=== PATIENT | female | born 2000 | race Caucasian/White ===

== ENCOUNTER 2020-03-24 10:30 | Inpatient (IN) | payer BC, SELFPAY ==
[2020-03-24] VITALS (15 sets, daily range): BP systolic 102–133; BP diastolic 62–91; PULSE 58–110; RESP 11–22; TEMP 36.9–38.1; O2SAT 98–100; BMI 19.5
--- NOTE | ~2020-03-24 | XR_ITS ---
EXAMINATION: XR retrograde pyelo w/stent RT EXAM DATE: 03/24/2020 16:08 INDICATION: Right-sided stent placement. TECHNIQUE: Fluoroscopy used during XR retrograde pyelo w/stent RT performed by Dr. Julieth Salcido MD. The DAP for this procedure was 0.4 mGym2. FINDINGS: Large calcific density projecting over the right ureteropelvic junction. The right ureter was cannulated, injected. Mild to moderate right-sided hydronephrosis. A double-J ureteral stent was placed. Correlate with procedure note. IMPRESSION: Fluoroscopy used during XR retrograde pyelo w/stent RT. Reviewed, dictated and finalized at location B.
--- NOTE | ~2020-03-24 | XR_ITS ---
XR abdomen/kub 1V DATE: 03/24/2020 14:48 INDICATION: Right flank pain TECHNIQUE: AP projection, 2 views COMPARISON: 03/24/[address] abdomen pelvis examination FINDINGS: Approximately 8 x 12 mm calcified calculus at the right ureteropelvic junction. No evidence of bowel obstruction. The psoas shadows are intact. No visceromegaly is evident. IMPRESSION: 8 x 12 mm calcified right ureteropelvic junction calculus Reviewed, dictated and finalized at Location [facility]. Reviewed, dictated and finalized at location A.
--- NOTE | ~2020-03-24 | CT_ITS ---
EXAMINATION: CT abdomen pelvis wo con DATE: 03/24/2020 12:49 INDICATION: Kidney stone TECHNIQUE: Computed tomography (CT) of the abdomen and pelvis was performed without intravenous contr ast. Automated exposure control and iterative reconstruction technique were employed. Exam dose: 169 .88 mGy-cm total exam DLP. COMPARISON: None. FINDINGS: The lung bases are clear. Normal heart size. No pericardial or pleural effusion. Normal heart size. No pericardial or pleural effusion. The liver, spleen, pancreas, adrenal glands are unremarkable. No bile duct or pancreatic duct dilata tion. 8 x 11.5 mm right renal pelvic calculus, with prominent right hydronephrosis. No other urinary tract calculus or left hydronephrosis. No renal mass lesion is evident on this limited noncontrast examination. Normal caliber of the abdominal aorta. No intraperitoneal or retroperitoneal or pelvic mass lesion o r lymphadenopathy. The uterus and adnexa and urinary bladder are unremarkable. Included skeletal structures are unremarkable. IMPRESSION: 8 x 11.5 mm right renal pelvic calculus with prominent right hydronephrosis Reviewed, dictated and finalized at Location [facility]. Reviewed, dictated and finalized at location A. IMPRESSION: 8 x 11.5 mm right renal pelvic calculus with prominent right hydro nephrosis
[2020-03-24 11:51] LABS: Basophils Percent Auto 0.3 % (0.2-1.2); Eosinophils Percent Auto 0.1 % (0-4.4); Hematocrit 44.9 % (37.0-47.0); Hemoglobin 15.3 g/dL (12.0-15.0); Immature Granulocyte Absolute 0.05 K/mm3 (0.00-0.031); Immature Granulocyte Percent A 0.3 % (0-0.5); Lymphocytes Absolute Auto 0.85 K/mm3 (0.9-3.2); Lymphocytes Percent Auto 5.9 % (18.3-44.2); Mean Corpuscular HGB Conc 34.1 g/dl (32-36); Mean Corpuscular Hemoglobin 31.6 pg (26-34); Mean Corpuscular Volume 92.8 fl (80-100); Mean Platelet Volume 10.1 fl (7.4-10.4); Monocytes Absolute Auto 0.8 K/mm3 (0.1-0.6); Monocytes Percent Auto 5.8 % (2.6-8.5); Neutrophils Absolute Auto 12.5 K/mm3 (1.3-6.7); Neutrophils Percent Auto 87.6 % (45.5-73.1); Platelet Count Result 238 k/mm3 (150-375); Red Blood Count 4.84 M/mm3 (4.2-5.4); Red Cell Distribution Width 11.3 % (11.5-14.5); White Blood Count 14.3 K/mm3 (4.5-10.0)
[2020-03-24 11:59] LABS: Add Urine Microscopic? YES; Appearance Urine Cloudy (Clear); Bacteria Urine 4+ /hpf; Bilirubin Urine Negative (Negative); Blood Urine 1+ (Negative); Color Urine Yellow (Yellow); Glucose Urine UA Negative (Negative); Ketones Urine 1+ mg/dL (Negative); Leukocyte Esterase Ur 3+ LEU/UL (Negative); Mucus Urine Heavy /lpf; Nitrate Urine Positive (Negative); Protein Urine 3+ mg/dL (Negative); RBC Urine 51-75 /hpf (0-2); Specific Grav Ur 1.024 (1.001-1.035); Squamous Epithelial Cell Urine Few /hpf (Few); Urobilinogen Urine Negative mg/dL (<2.0); WBC Clumps Urine Present /HPF; WBC Urine >75 /hpf
[2020-03-24 12:02] LABS: Anion Gap 11 mmol/L (8-16); Blood Urea Nitrogen 8 mg/dL (7-17); Calcium 9.8 mg/dL (8.4-10.2); Carbon Dioxide 27 mmol/L (22-30); Chloride 104 mmol/L (98-107); Estimated CRCL calculation 59 ml/min; Estimated Glomerular Filt Rate > 60; Glucose 101 mg/dL (65-105); Potassium 4.2 mmol/L (3.4-5.0); Sodium 142 mmol/L (137-145)
--- NOTE | 2020-03-24 12:32 | ED.ABDPAIN ---
HPI - Abdominal Pain General Chief Complaint: Abdominal Pain Stated Complaint: poss kidney stone Time Seen by Provider: 03/24/20 12:21 Source: patient and family Mode of arrival: ambulatory Limitations: no limitations History of Present Illness HPI narrative: 20 years old white female presents with right flank pain radiating to right lower quadrant, stabbing, sharp, constant, denying aggravating or relieving factors, associated with nausea and vomiting since last night. Patient denies any fever, reports chills, and similar symptoms secondary to kidney stone. Patient denies any history of abdominal surgery. Related Data Home Medications Medication Instructions Recorded Confirmed medroxyprogesterone 150 mg/mL 150 mg IM [id number] 02/02/20 02/02/20 intramuscular suspension cariprazine [Vraylar] 0 ea PO .COMPLEX 03/24/20 Allergies Allergy/AdvReac Type Severity Reaction Status Date / Time amphetamine AdvReac Intermediate Fatigued Verified 03/24/20 11:36 dextroamphetamine AdvReac Intermediate fatigued Verified 03/24/20 11:36 Review of Systems Review of Systems: Narrative: CONSTITUTIONAL: Denies fever, chills, or sweats. EYES: Denies visual changes, redness, or discharge. ENT: Denies rhinorrhea, congestion, sore throat, or otalgia. CARDIOVASCULAR: Denies chest pain, palpitations, or edema. RESPIRATORY: Denies cough or dyspnea. GASTROINTESTINAL: Right flank pain, right lower quadrant pain. GENITOURINARY: Denies dysuria or hematuria. SKIN: Denies rash or itching. MUSCULOSKELETAL: Denies back pain, joint pain, or myalgia. NEUROLOGIC: Denies headache, numbness, or weakness. PSYCHIATRIC: Denies anxiety or depression. PMFSH Past Medical History Medical History Bipolar II disorder major depressive with catatonic features Family History Family History Other Depression Family history of malignant neoplasm of breast Family history of thyroid disease Social History Social History Gender identity (if verbalized by the patient): Female Sexual Orientation (if Verbalized by the Patient): Straight or Heterosexual Exam Narrative: Exam Narrative: General appearance: Well-developed, well-nourished, mother at the bedside Skin: Normal color Head: Normocephalic, nontraumatic Eyes: Clear conjunctiva ENT: Oropharynx normal, ears normal, nose normal Neck: Supple, nontender Chest and respiratory: Airway patent, no respiratory distress, no accessory muscle use Heart: Regular rate/rhythm Abdomen: Soft, mild tenderness right abdomen, severe tenderness right flank., no organomegaly, quiet bowel sounds Vascular: Normal peripheral pulses, normal capillary refill. Musculoskeletal: Normal range of motion, nontender back Neurologic: Alert and oriented ?3, SPECIALIST FIELD ENGINEER is normal as tested, no gross motor deficit Course Course Emergency Course: Stable Consultations Consultation #1: Dr. Salcido/urologist Date: 03/24/20 Time: 14:38 Vital Signs Vital signs: Vital Signs Temperature 36.9 C 03/24/20 11:33 Pulse Rate 94 03/24/20 11:33 Respiratory Rate 22 H 03/24/20 11:33 Blood Pressure 133/91 H 03/24/20 11:33 Pulse Oximetry 100 03/24/20 11:33 Temperature 36.9 C 03/24/20 11:33 Pulse Rate 94 03/24/20 11:33 Respiratory Rate 22 H 03/24/20 11:33 Blood Pressure 133/91 H 03/24/20 11:33 Pulse Oximetry 100 03/24/20 11:33 MDM - Abdominal Pain MDM Narrative Medical decision making narrative: Patient presents with right flank pain, associated with nausea and frequent vomiting, history of
[2020-03-24] MEDS: HYDROmorphone HCL INJ (*CRX) 1 MG/ML SYR 0.5 MG IV PUSH (13:34)
[2020-03-24] MEDS: ONDANSETRON INJ 4 MG/2 ML VIAL IV PUSH (13:34)
--- NOTE | 2020-03-24 14:38 | WPDURCON ---
Assessment and Plan Assessment and plan (1) Kidney calculus: Code(s): N20.0 - Calculus of kidney Status: Acute Assessment and Plan: Obtain Consent:Cystoscopy, right ureteroscopy with stent placement, right retrograde pyelogram. Keep NPO. Get a KUB for surgical planning. Plan to go to surgery this afternoon, then will need a right ESWL in a few weeks when infection resolves as long as stone is visible on KUB. Will plan to admit to medicine and treat UTI with IV antibiotics until culture comes back and patient is stable. (2) Pyelonephritis: Code(s): N12 - Tubulo-interstitial nephritis, not specified as acute or chronic Status: Acute Urology Consult Note HPI Date Seen: 03/24/20 Primary Care Provider: Larry Garcia Jr., MD Consult Narrative Narrative: Laura Gracia is a 20 year old female who presents to the ER today with worsening right flank pain that developed shortly after midnight this morning. She states this pain radiates to the right lower quadrant. She states she woke up in pain and vomited, then fell back asleep and woke up again to vomit, then applied heat off and on to her right flank until around 0830 this morning when the pain became so severe she came to the ED. She does'nt have a history of kidney stones but has passed them all spontaneously without surgery. She denies dysuria, hematuria, frequency or urgency to urinate or fever. She also describes having chills. Her WBC is elevated >14,000, creatinine normal at 1.00, but UA is suggestive of a UTI, urine culture is pending. She is afebrile. Her CT scan abdomen/pelvis shows an 11mm right renal pelvic stone with hydronephrosis. Review of Systems Cardiovascular: Cardiovascular: Denies chest pain Respiratory: Respiratory: Reports no additional respiratory complaints Gastrointestinal: Gastrointestinal: Reports abdominal pain, Reports nausea and Reports vomiting Genitourinary: Genitourinary: Denies dysuria, Denies pelvic pain, Reports flank pain and Denies urinary urgency PMF Past Medical History Medical History Bipolar II disorder major depressive with catatonic features Family History Family History Other Depression Family history of malignant neoplasm of breast Family history of thyroid disease Social History Social History Gender identity (if verbalized by the patient): Female Sexual Orientation (if Verbalized by the Patient): Straight or Heterosexual Meds Home Medications and Allergies Home Medications Medication Instructions Recorded Confirmed Type medroxyprogesterone 150 mg/mL 150 mg IM [id number] 02/02/20 02/02/20 History intramuscular suspension cariprazine [Vraylar] 0 ea PO .COMPLEX 03/24/20 History Allergies Allergy/AdvReac Type Severity Reaction Status Date / Time amphetamine AdvReac Intermediate Fatigued Verified 03/24/20 11:36 dextroamphetamine AdvReac Intermediate fatigued Verified 03/24/20 11:36 Vital Signs Vital Signs - 24 hr 03/24/20 11:33 03/24/20 13:40 Temperature 98.4 F Pulse Rate 94 82 Respiratory Rate 22 H 18 Blood Pressure 133/91 H 116/74 Pulse Oximetry 100 99 Exam Resp: Effort & Inspection: normal respiratory effort Cardio: Rate: regular rate GI: GI Palp: Yes Soft to palpation and Yes Tenderness to palpation present (GI) : General: Yes CVA tenderness on the right Extrem: General: no edema Results Labs CBC & Chem 7: 03/24/20 11:41 03/24/20 11:41 Labs: Short CBC 03/24/20 Range/Units 11:41 WBC 14.3 H (4.5-10.0) K/mm3 Hgb 15.3 H (12.0-15.0) g/dL Hct 44.9 (37.0-47.0) % Plt Count 238 (150-375) k/mm3 BMP 03/24/20 11:41 Sodium 142 Potassium 4.2 Chloride 104 Carbon Dioxide 27 BUN 8 Creatinine 1.00 Glucose 1
--- NOTE | 2020-03-24 14:49 | WPDANESEPPF ---
Anes - Initial Pre Proc Eval Procedure: Operation Date: 03/24/20 16:00 Proposed Procedures p Cystoscopy, Right Retrograde Pyelogram, Right Ureteral Stent Placement(Right) - Julieth Salcido MD Date/Time: 03/24/20 14:49 Surgeon: Julieth Salcido MD Pre Op Diagnosis: poss kidney stone Patient Data Age: 20 Gender: F Height: 1.6 m Weight: 47.63 kg Last Vital Signs Temp 36.9 C 03/24/20 11:33 Pulse 82 03/24/20 13:40 Resp 18 03/24/20 13:40 BP 116/74 03/24/20 13:40 Pulse Ox 99 03/24/20 13:40 Allergies Allergy/AdvReac Type Severity Reaction Status Date / Time amphetamine AdvReac Intermediate Fatigued Verified 03/24/20 11:36 dextroamphetamine AdvReac Intermediate fatigued Verified 03/24/20 11:36 Home Medications Medication Instructions Recorded Confirmed Type medroxyprogesterone 150 mg/mL 150 mg IM [id number] 02/02/20 02/02/20 History intramuscular suspension cariprazine [Vraylar] 0 ea PO .COMPLEX 03/24/20 History Laboratory Tests 03/24/20 03/24/20 03/24/20 11:41 11:41 11:42 WBC 14.3 K/mm3 H K/mm3 (4.5-10.0) RBC 4.84 M/mm3 M/mm3 (4.2-5.4) Hgb 15.3 g/dL H g/dL (12.0-15.0) Hct 44.9 % % (37.0-47.0) MCV 92.8 fl fl (80-100) MCH 31.6 pg pg (26-34) MCHC 34.1 g/dl g/dl (32-36) RDW 11.3 % L % (11.5-14.5) Plt Count 238 k/mm3 k/mm3 (150-375) MPV 10.1 fl fl (7.4-10.4) Immature Gran % (Auto) 0.3 % % (0-0.5) Neut % (Auto) 87.6 % H % (45.5-73.1) Lymph % (Auto) 5.9 % L % (18.3-44.2) [place] % (Auto) 5.8 % % (2.6-8.5) Eos % (Auto) 0.1 % % (0-4.4) Baso % (Auto) 0.3 % % (0.2-1.2) Lymph # (Auto) 0.85 K/mm3 L K/mm3 (0.9-3.2) [place] # (Auto) 0.8 K/mm3 H K/mm3 (0.1-0.6) Eos # (Auto) 0.0 K/mm3 K/mm3 (0-0.3) Baso # (Auto) 0.0 K/mm3 K/mm3 (0.0-0.1) Abs Immat Gran (auto) 0.05 K/mm3 H K/mm3 (0.00-0.031) Absolute Neuts (auto) 12.5 K/mm3 H K/mm3 (1.3-6.7) Absolute Nucleated RBC 0.0 K/mm3 K/mm3 (0.0-0.012) Nucleated RBC % 0.0 % % (0.0-0.2) Sodium 142 mmol/L mmol/L (137-145) Potassium 4.2 mmol/L mmol/L (3.4-5.0) Chloride 104 mmol/L mmol/L (98-107) Carbon Dioxide 27 mmol/L mmol/L (22-30) Anion Gap 11 mmol/L mmol/L (8-16) BUN 8 mg/dL mg/dL (7-17) Creatinine 1.00 mg/dL mg/dL (0.7-1.0) Estim Creat Clear Calc 59 ml/min ml/min Estimated GFR > 60 (59 - ) Glucose 101 mg/dL mg/dL (65-105) Calcium 9.8 mg/dL mg/dL (8.4-10.2) Urine Color Yellow (Yellow) Urine Appearance Cloudy H (Clear) Urine pH 6.0 (5.0-9.0) Ur Specific [place] 1.024 (1.001-1.035) Urine Protein 3+ mg/dL H mg/dL (Negative) Urine Glucose (UA) Negative mg/dL mg/dL (Negative) Urine Ketones 1+ mg/dL H mg/dL (Negative) Ur Blood (Man) 1+ H (Negative) Urine Nitrate Positive H (Negative) Urine Bilirubin Negative (Negative) Urine Urobilinogen Negative mg/dL mg/dL (<2.0) Leukocyte Esterase Rfl 3+ ROMEL/UL H ROMEL/UL (Negative) Urine RBC 51-75 /hpf H /hpf (0-2) Urine WBC >75 /hpf H /hpf Urine WBC Clumps Present /HPF H /HPF (None) Ur Squamous Epith Cells Few /hpf /hpf (Few) Urine Bacteria 4+ /hpf H /hpf Urine Mucus Heavy /lpf H /lpf Patient hx anesthesia problems: none Family hx anesthesia problems: none PMFSH Past Medical History Medical History Bipolar II disorder major depressive with catatonic features Family History Family History
[2020-03-24] MEDS: LACTATED RINGERS 1,000 ML 30 ML IV CONT (15:00)
--- NOTE | 2020-03-24 15:40 | WPDHPUPDATE1 ---
History and Physical Update Update Date/Time: 03/24/20 15:40 History and Physical has been reviewed, including an updated exam of the patient. There are NO changes in the patient's condition. Cystoscopy, Right Retrograde Pyelogram, Right Ureteral Stent Placement(Right) Risks, benefits, and alternatives have been discussed and questions answered. Patient agrees to proceed with procedure.
[2020-03-24] MEDS: LIDOCAINE HCL 2% GEL UROJET 10 ML PKG MUCOUS MEM (16:05)
--- NOTE | 2020-03-24 16:51 | SUR.PHASEI ---
1650-DR. DAWKINS AT [facility] TO SPEAK WITH PT.
--- NOTE | 2020-03-24 16:57 | PM.PROC ---
Procedure Note - Detailed Date of procedure: 03/24/20 Pre-op diagnosis: poss kidney stone Post-op diagnosis: same Procedure performed: Cystoscopy, right ureteral stent insertion, right retrograde pyelogram Description of procedure: Informed consent was obtained. Patient to the operating room. She was given preop IV antibiotics in the ER. The patient was given a mac anesthetic. She was prepped in the normal sterile fashion. A 22 F scope was inserted through the urethra into the bladder the bladder had changes consistent with a urinary tract infection with diffuse inflammation, there were no masses noted. The patient bilateral orthotopic orifices. The [place]ae[place] of the right ureteral orifice. A retrograde pyelogram was performed that showed large stone at the proximal ureter with moderate to severe right hydronephrosis. We then advanced a wire and I was able with some manipulation to advance the wire past the level of the stone. We then placed a 4.8 variable length stent over the wire with a curl in the renal pelvis and a curl in the bladder. Bladder was emptied with a Harmon catheter. Patient was taken to the recovery room in stable condition. Anesthesia: MAC Surgeon: Julieth Salcido MD Estimated blood loss (mL): 1 Drains: No Packing: No Pathology: none sent Complications: No immediate complications Condition: stable Disposition: PACU
--- NOTE | 2020-03-24 17:40 | SUR.PHASEI ---
1715-PT READY FOR TRANSPORT, COMPUTER DIFFICULTY, UNABLE TO PROCESS TRANSFER, SPRING MAKER AND IT AWARE, WILL HAVE 30 MINUTE DELAY. PT RESTING QUIETLY ON LEFT SIDE AND WILL NOT BOTHER. 1740-COMPUTER STATUS OBTAINED, WILL TRANSPORT.
--- NOTE | 2020-03-24 17:50 | PC.NURSE ---
This patient, Laura Gracia, was admitted to Medical Room 343-01. Patient/family oriented to hospital policies and general routines including ID bracelet, bed and alarms, visiting hours, pain management, procedures, bathroom and other care routines, personal items, smoking policy, room service/diet, and visiting hours. Valuables list has been completed. Information on how to activate the Rapid Response Team has been discussed. Patient/Family are encouraged to report perceived risks to care and to ask questions if they do not understand what they are told or what they should do.
[2020-03-24 18:02] LABS: Basophils Percent Auto 0.2 % (0.2-1.2); Hematocrit 41.3 % (37.0-47.0); Hemoglobin 14.3 g/dL (12.0-15.0); Immature Granulocyte Absolute 0.07 K/mm3 (0.00-0.031); Immature Granulocyte Percent A 0.4 % (0-0.5); Lymphocytes Absolute Auto 0.97 K/mm3 (0.9-3.2); Lymphocytes Percent Auto 6.2 % (18.3-44.2); Mean Corpuscular HGB Conc 34.6 g/dl (32-36); Mean Corpuscular Hemoglobin 31.9 pg (26-34); Mean Corpuscular Volume 92.2 fl (80-100); Mean Platelet Volume 10.2 fl (7.4-10.4); Monocytes Absolute Auto 0.7 K/mm3 (0.1-0.6); Monocytes Percent Auto 4.4 % (2.6-8.5); Neutrophils Percent Auto 88.8 % (45.5-73.1); Platelet Count Result 178 k/mm3 (150-375); Red Blood Count 4.48 M/mm3 (4.2-5.4); Red Cell Distribution Width 11.3 % (11.5-14.5); White Blood Count 15.8 K/mm3 (4.5-10.0)
[2020-03-24 18:18] LABS: Anion Gap 12 mmol/L (8-16); Blood Urea Nitrogen 9 mg/dL (7-17); Calcium 9.4 mg/dL (8.4-10.2); Carbon Dioxide 24 mmol/L (22-30); Chloride 103 mmol/L (98-107); Estimated CRCL calculation 68 ml/min; Estimated Glomerular Filt Rate > 60; Glucose 102 mg/dL (65-105); Potassium 4.3 mmol/L (3.4-5.0); Sodium 139 mmol/L (137-145)
[2020-03-24] MEDS: DEXTROSE 5%/LACTATED RINGERS 1,000 ML 125 ML IV CONT (18:58)
--- NOTE | 2020-03-24 19:00 | PM.IMHP ---
H&P: HPI History of Present Illness Date/Time: 03/24/20 19:00 Chief complaint: Right flank pain. Narrative: Laura Gracia is a 20-year-old female with history of kidney stones who presented to the emergency department earlier this afternoon for evaluation of right flank pain. Shortly after midnight she was wakened from sleep with severe sharp and shooting pain in her right flank which radiated somewhat to the right low back and into the groin. This pain is similar to when she has had kidney stones in the past, colicky in nature. Associated symptoms include nausea and vomiting. She is now status post cystoscopy with right ureteral stent insertion, and is feeling much better. She denies having dysuria and hematuria prior to her surgery, but has notice mild hematuria postoperatively. She has no real discomfort at this time. She had a fever earlier today which she thinks has broken. Review of Systems Review of Systems: Narrative: Twelve systems were reviewed with pertinent positives and negatives as per HPI. No recent cold or flu-like symptoms. She did have a fever and chills earlier today. Her last menstrual period is unknown, she gets the Depo shot. She denies chest pain shortness of breath. No cough. Except as documented, all other systems were reviewed and are negative. [facility] Past Medical History Medical History (Updated 03/24/20 @ 21:28 by Carina Trujillo PA-C) Attention deficit disorder (ADD) without hyperactivity Bipolar II disorder major depressive with catatonic features Kidney stones Surgical History Surgical History (Updated 03/24/20 @ 21:26 by Carina Trujillo PA-C) History of adenoidectomy History of cystoscopy (~03/24/20) With right ureteral stent placement for kidney stone. Family History Family History (Updated 03/24/20 @ 21:26 by Carina Trujillo PA-C) Other Depression Family history of malignant neoplasm of breast Family history of thyroid disease Hypertension Social History Social History (Updated 03/24/20 @ 21:27 by Carina Trujillo PA-C) Social History: Surrogate decision maker: Joanna Gracia, mother. Code status: Full code. Smoking status: Current every day smoker Tobacco type: e-cigarettes/vaping Alcohol intake: never Substance use type: marijuana Last use: 03/24/2020 Additional living arrangements comments: Lives with her sister and a friend in [place]. Additional occupation/education comments: Works at [employer]. Gender identity (if verbalized by the patient): Female Sexual Orientation (if Verbalized by the Patient): Straight or Heterosexual Spiritual care concerns: No Meds Home Medications and Allergies Home Medications Medication Instructions Recorded Confirmed Type medroxyprogesterone 150 mg/mL 150 mg IM [id number] 02/02/20 03/24/20 History intramuscular suspension cariprazine [Vraylar] 0 ea PO .COMPLEX 03/24/20 03/24/20 History Allergies Allergy/AdvReac Type Severity Reaction Status Date / Time amphetamine AdvReac Intermediate Fatigued Verified 03/24/20 15:15 dextroamphetamine AdvReac Intermediate fatigued Verified 03/24/20 15:15 Vital Signs Vital Signs - 24 hr 03/24/20 11:33 03/24/20 13:40 03/24/20 15:20 Temperature 98.4 F 98.6 F Pulse Rate 94 82 86 Respiratory Rate 22 H 18 18 Blood Pressure 133/91 H 116/74 127/75 Pulse Oximetry 100 99 03/24/20 16:10 03/24/20 16:25 03/24/20 16:40 Temperature 98.6 F Pulse Rate 81 70 79 Respiratory Rate 12 12 11 L Blood Pressure 105/63 106/67 116/72 Pulse Oximetry 100 100 100 03/24/20 16:55 03/24/20 17:10 03/24/20 17:42 Temperature Pulse Rate 60 58 L 79 Respiratory Rate 12 12 17 Blood Pressure 118/74 128/82 117/72 Pulse Oximetry 98 98 98 03/24/20 17:59 03/24/20 18:15 03/24/20 18:49 Temperature 99.1 F 99.4 F 99.3 F Pulse Rate 85 81 91 Respiratory Rate 14 12 12 Blood Pressure 129/75 126/79 128/72 Pulse Oximetry 99 100 99
[2020-03-24] MEDS: HYDROcodone/acetaminophen (*CRX) 5-325 MG TABLET 1 TAB PO (20:24)
[2020-03-24] MEDS: SODIUM CHLORIDE 0.9% IV 1,000 ML 80 ML IV CONT (22:13)
[2020-03-25 04:57] VITALS: BP 113/60; PULSE 107; RESP 17; TEMP 37; O2SAT 99
--- NOTE | 2020-03-25 08:33 | WPDUROPN2 ---
Progress Note: A&P Assessment and Plan (1) Hydronephrosis of right kidney: Code(s): N13.30 - Unspecified hydronephrosis Status: Acute Assessment and Plan: Will plan to get a FERNANDA tomorrow to ensure resolution of hydronephrosis. Ok to remove fontana, patient doing well, tolerating diet. Will advance to regular diet. (2) Kidney calculus: Code(s): N20.0 - Calculus of kidney Status: Acute Assessment and Plan: Will plan outpatient Litho, when infection clears in a week or two. (3) Pyelonephritis: Code(s): N12 - Tubulo-interstitial nephritis, not specified as acute or chronic Status: Acute Assessment and Plan: Continue IV antibiotics, tailor to culture results. Will continue to follow. Subjective Subjective Date/Time Seen: 03/25/20 08:33 POD #1 cystoscopy, right stent placement, retrograde pyelogram Review of Systems Cardiovascular: Cardiovascular: Denies chest pain Respiratory: Respiratory: Reports no additional respiratory complaints Gastrointestinal: Gastrointestinal: Denies abdominal pain, Denies nausea and Denies vomiting Genitourinary: Genitourinary: Denies hematuria, Denies dysuria, Denies pelvic pain and Denies flank pain Exam Resp: Effort & Inspection: normal respiratory effort Cardio: Rate: tachycardic GI: GI Palp: Yes Soft to palpation and Yes Tenderness to palpation present (GI) (mildly tender in the right flank) : General: Yes CVA tenderness (improved) on the right Urinary Catheter: Urinary Catheter: patent and draining and urine clear Extrem: General: no edema Objective Data Vital Signs Vital Signs: Vital Signs - 24 hr 03/24/20 11:33 03/24/20 13:40 03/24/20 15:20 Temperature 98.4 F 98.6 F Pulse Rate 94 82 86 Respiratory Rate 22 H 18 18 Blood Pressure 133/91 H 116/74 127/75 Pulse Oximetry 100 99 03/24/20 16:10 03/24/20 16:25 03/24/20 16:40 Temperature 98.6 F Pulse Rate 81 70 79 Respiratory Rate 12 12 11 L Blood Pressure 105/63 106/67 116/72 Pulse Oximetry 100 100 100 03/24/20 16:55 03/24/20 17:10 03/24/20 17:42 Temperature Pulse Rate 60 58 L 79 Respiratory Rate 12 12 17 Blood Pressure 118/74 128/82 117/72 Pulse Oximetry 98 98 98 03/24/20 17:59 03/24/20 18:15 03/24/20 18:49 Temperature 99.1 F 99.4 F 99.3 F Pulse Rate 85 81 91 Respiratory Rate 14 12 12 Blood Pressure 129/75 126/79 128/72 Pulse Oximetry 99 100 99 03/24/20 19:56 03/24/20 22:15 03/24/20 23:33 Temperature 100.6 F H 99.3 F 98.6 F Pulse Rate 110 H 97 Respiratory Rate 16 16 Blood Pressure 102/62 117/62 Pulse Oximetry 98 99 03/25/20 04:57 Temperature 98.6 F Pulse Rate 107 H Respiratory Rate 17 Blood Pressure 113/60 Pulse Oximetry 99 Intake/Output Intake/Output: Intake & Output 03/22/20 03/23/20 03/24/20 03/25/20 23:59 23:59 23:59 23:59 Intake Total 900 940 Output Total 1600 Balance 900 -660 Meds/Results Medications: Active Medications Generic Name Dose Route Start Last Admin Trade Name Freq PRN Reason Stop Dose Admin Hydrocodone Bitart/Acetaminophen 1 tab 03/24/20 17:39 03/24/20 20:24 [place] 5-325 Mg PO 1 tab Q4H PRN Administration Pain Rated 1-6 Hyoscyamine 0.125 mg 03/24/20 17:39 Levsin Tablet SUBLINGUAL Q6H PRN Bladder Spasm Ceftriaxone Sodium/Dextrose 1 gm in 50 mls @ 100 mls/hr 03/25/20 13:00 Rocephin 1 Gm/D5w 50 Ml IVPB Q24H KAYLA Sodium Chloride 1,000 mls @ 80 mls/hr 03/24/20 21:32 03/25/20 05:04 Normal Saline Iv IV CONT 03/25/20 10:01 80 mls/hr .[id number] Infusion Morphine Sulfate 2 mg 03/24/20 17:39 Morphine Sulfate Inj (*Crx) IV PUSH Q2H PRN Pain Rated 7-10 Naloxone HCl 0.1 mg 03/24/20 17:39 Narcan IV PUSH Q2M PRN Opiate Reversal Non-Formulary Medication 0 each 03/24/20 17:39 Cariprazine [Vraylar] PO 04/23/20 17:40 .COMPLEX KAYLA Ondansetron HCl 4 mg 03/24/20 17:39 Zofran Inj IV P
--- NOTE | 2020-03-25 09:50 | WPDANESPN ---
Anes - Prog Note Post-Op Date/Time: 03/25/20 09:50 Cardiovascular status: normal Respiratory status: normal Airway patency: baseline Mental status: baseline Post-Op hydration status: normal Vital Signs: Last Vital Signs Temp 37.0 C 03/25/20 04:57 Pulse 107 H 03/25/20 04:57 Resp 17 03/25/20 04:57 BP 113/60 03/25/20 04:57 Pulse Ox 99 03/25/20 04:57 Pain Score (VAS): 0 I/O: Intake & Output 03/24/20 03/25/20 03/25/20 23:59 07:59 15:59 Intake Total 900 940 240 Output Total 1600 650 Balance 650 -408 -111 Laboratory Tests 03/24/20 17:57 03/24/20 17:57 03/24/20 03/24/20 03/24/20 11:41 11:41 11:42 WBC 14.3 H RBC 4.84 Hgb 15.3 H Hct 44.9 MCV 92.8 MCH 31.6 MCHC 34.1 RDW 11.3 L Plt Count 238 MPV 10.1 Immature Gran % (Auto) 0.3 Neut % (Auto) 87.6 H Lymph % (Auto) 5.9 L [place] % (Auto) 5.8 Eos % (Auto) 0.1 Baso % (Auto) 0.3 Lymph # (Auto) 0.85 L [place] # (Auto) 0.8 H Eos # (Auto) 0.0 Baso # (Auto) 0.0 Abs Immat Gran (auto) 0.05 H Absolute Neuts (auto) 12.5 H Absolute Nucleated RBC 0.0 Nucleated RBC % 0.0 Sodium 142 Potassium 4.2 Chloride 104 Carbon Dioxide 27 Anion Gap 11 BUN 8 Creatinine 1.00 Estim Creat Clear Calc 59 Estimated GFR > 60 Glucose 101 Calcium 9.8 Urine Color Yellow Urine Appearance Cloudy H Urine pH 6.0 Ur Specific [place] 1.024 Urine Protein 3+ H Urine Glucose (UA) Negative Urine Ketones 1+ H Ur Blood (Man) 1+ H Urine Nitrate Positive H Urine Bilirubin Negative Urine Urobilinogen Negative Leukocyte Esterase Rfl 3+ H Urine RBC 51-75 H Urine WBC >75 H Urine WBC Clumps Present H Ur Squamous Epith Cells Few Urine Bacteria 4+ H Urine Mucus Heavy H 03/24/20 03/24/20 17:57 17:57 WBC 15.8 H RBC 4.48 Hgb 14.3 Hct 41.3 MCV 92.2 MCH 31.9 MCHC 34.6 RDW 11.3 L Plt Count 178 MPV 10.2 Immature Gran % (Auto) 0.4 Neut % (Auto) 88.8 H Lymph % (Auto) 6.2 L [place] % (Auto) 4.4 Eos % (Auto) 0.0 Baso % (Auto) 0.2 Lymph # (Auto) 0.97 [place] # (Auto) 0.7 H Eos # (Auto) 0.0 Baso # (Auto) 0.0 Abs Immat Gran (auto) 0.07 H Absolute Neuts (auto) 14.0 H Absolute Nucleated RBC 0.0 Nucleated RBC % 0.0 Sodium 139 Potassium 4.3 Chloride 103 Carbon Dioxide 24 Anion Gap 12 BUN 9 Creatinine 0.90 Estim Creat Clear Calc 68 Estimated GFR > 60 Glucose 102 Calcium 9.4 Urine Color Urine Appearance Urine pH Ur Specific [place] Urine Protein Urine Glucose (UA) Urine Ketones Ur Blood (Man) Urine Nitrate Urine Bilirubin Urine Urobilinogen Leukocyte Esterase Rfl Urine RBC Urine WBC Urine WBC Clumps Ur Squamous Epith Cells Urine Bacteria Urine Mucus Post-procedural complaints: none Patient Feedback: Patient satisfied with anesthetic care.
--- NOTE | 2020-03-25 10:46 | PM.IMPN ---
Progress Note: A&P Assessment and Plan (1) Sepsis: Code(s): A41.9 - Sepsis, unspecified organism Status: Acute Assessment and Plan: Supported by fever, leukocytosis, and tachycardia. Source of infection is pyelonephritis in the setting of a kidney stone. Blood cultures were obtained after initiation of antibiotics and pending. Urine cultures were obtained and pending. Labs were ordered and have not been completed yet for today. Lactic acid will be checked. She is hemodynamically stable and feels much better today. Continue IV fluids and IV ceftriaxone. Await urine and blood cultures. (2) Hydronephrosis of right kidney: Code(s): N13.30 - Unspecified hydronephrosis Status: Acute Assessment and Plan: Secondary to large stone at the proximal ureter. She is s/p right ureteral stent placement 03/24/20. Management per urology. Input is appreciated. Fontana was removed today and she is voiding with some urgency and dysuria noted. Pain has resolved. (3) Pyelonephritis: Code(s): N12 - Tubulo-interstitial nephritis, not specified as acute or chronic Status: Acute Assessment and Plan: UA grossly abnormal with pyelonephritis in the setting of nephrolithiasis. Urine and blood cultures were obtained and pending. Continue empiric IV ceftriaxone. Urology is on board and input is appreciated. Await culture results and tailor antibiotics accordingly. (4) Kidney calculus: Code(s): N20.0 - Calculus of kidney Status: Acute Assessment and Plan: She is s/p right ureteral stent placement for right calculi by Dr. Salcido 03/24/20. Management per urology. Appreciate urology input. (5) Bipolar II disorder major depressive with catatonic features: Code(s): F31.81 - Bipolar II disorder; F06.1 - Catatonic disorder due to known physiological condition Status: Chronic Assessment and Plan: Chronic with no acute issues. Continue vraylar. Subjective Date/time seen: 03/25/20 10:46 Mrs. Gracia is a 20 y.o. female who is seen in follow-up for nephrolithiasis. She underwent cystoscopy with right ureteral stent insertion and right retrograde pyelogram by Dr. Salcido 03/24/20. She reports hematuria after fontana removal which has resolved. She reports occasional, mild cramping but no significant abdominal or flank pain and feels much better overall. She had a fever of 100.6F overnight but has been afebrile today. She denies nausea and vomiting and she is tolerating her diet. She endorses mild urinary discomfort and urgency. She has no other complaints. Review of Systems Review of Systems: All systems reviewed & are unremarkable except as noted in HPI and below Exam Narrative: Exam Narrative: General: Very pleasant, healthy-appearing, well-developed 20 y.o. female sitting on the couch at the bedside in no acute distress. HEENT: Normocephalic and atraumatic. Sclerae anicteric. Oral mucosa moist. Neck: Supple without lymphadenopathy or masses. Cardiac: Regular rate and rhythm. S1 and S2 normal. Lungs: Lungs clear to auscultation bilaterally. Abdomen: Normoactive bowel sounds. Abdomen soft, non-distended, and mildly tender in the RUQ. : No CVA tenderness bilaterally. Extremities: No lower extremity edema or calf tenderness. Neurological: Alert. Exam non-focal to casual conversation. Speech is clear. Skin: Warm and dry. Psychiatric: Judgment and insight intact. Mood and affect normal. Objective Data Vital Signs Vital Signs: Vital Signs - 24 hr 03/24/20 11:33 03/24/20 13:40 03/24/20 15:20 Temperature 98.4 F 98.6 F Pulse Rate 94 82 86 Respiratory Rate 22 H 18 18 Blood Pressure 133/91 H 116/74 127/75 Pulse Oximetry 100 99 03/24/20 16:10 03/24/20 16:25 03/24/20 16:40 Temperature 98.6 F Pulse Rate 81 70 79 Respiratory Rate 12 12 11 L Blood Pressure 105/63 106/67 116/72 Pulse Oximetry 100 100 100 03/24/20 16:55 1
[2020-03-25 11:24] VITALS: BP 118/68; PULSE 92; RESP 18; TEMP 36.8; O2SAT 100
[2020-03-25 12:13] LABS: Basophils Percent Auto 0.3 % (0.2-1.2); Eosinophils Absolute Auto 0.1 K/mm3 (0-0.3); Eosinophils Percent Auto 0.6 % (0-4.4); Hematocrit 39.9 % (37.0-47.0); Hemoglobin 13.3 g/dL (12.0-15.0); Immature Granulocyte Absolute 0.05 K/mm3 (0.00-0.031); Immature Granulocyte Percent A 0.5 % (0-0.5); Lymphocytes Absolute Auto 1.46 K/mm3 (0.9-3.2); Lymphocytes Percent Auto 15.2 % (18.3-44.2); Mean Corpuscular HGB Conc 33.3 g/dl (32-36); Mean Corpuscular Hemoglobin 31.1 pg (26-34); Mean Corpuscular Volume 93.4 fl (80-100); Mean Platelet Volume 10.5 fl (7.4-10.4); Monocytes Absolute Auto 0.7 K/mm3 (0.1-0.6); Monocytes Percent Auto 7.4 % (2.6-8.5); Neutrophils Absolute Auto 7.3 K/mm3 (1.3-6.7); Platelet Count Result 179 k/mm3 (150-375); Red Blood Count 4.27 M/mm3 (4.2-5.4); Red Cell Distribution Width 11.3 % (11.5-14.5); White Blood Count 9.6 K/mm3 (4.5-10.0)
[2020-03-25 12:28] LABS: Lactic Acid Reflex 1.3 mmol/L (0.7-2.1)
[2020-03-25 12:30] LABS: Anion Gap 10 mmol/L (8-16); Blood Urea Nitrogen 7 mg/dL (7-17); Calcium 9.1 mg/dL (8.4-10.2); Carbon Dioxide 26 mmol/L (22-30); Chloride 102 mmol/L (98-107); Estimated CRCL calculation 68 ml/min; Estimated Glomerular Filt Rate > 60; Glucose 99 mg/dL (65-105); Potassium 3.6 mmol/L (3.4-5.0); Sodium 138 mmol/L (137-145)
[2020-03-25] MEDS: HYDROcodone/acetaminophen (*CRX) 5-325 MG TABLET 1 TAB PO (18:29)
[2020-03-25 22:15] VITALS: BP 105/52; PULSE 82; RESP 16; TEMP 36.2; O2SAT 100
[2020-03-26 04:50] VITALS: BP 117/63; PULSE 99; RESP 18; TEMP 36.4; O2SAT 100
[2020-03-26 06:29] LABS: Basophils Percent Auto 0.4 % (0.2-1.2); Eosinophils Absolute Auto 0.1 K/mm3 (0-0.3); Eosinophils Percent Auto 1.1 % (0-4.4); Hematocrit 37.6 % (37.0-47.0); Hemoglobin 12.9 g/dL (12.0-15.0); Immature Granulocyte Absolute 0.02 K/mm3 (0.00-0.031); Immature Granulocyte Percent A 0.3 % (0-0.5); Lymphocytes Absolute Auto 1.34 K/mm3 (0.9-3.2); Lymphocytes Percent Auto 19.1 % (18.3-44.2); Mean Corpuscular HGB Conc 34.3 g/dl (32-36); Mean Corpuscular Hemoglobin 31.6 pg (26-34); Mean Corpuscular Volume 92.2 fl (80-100); Mean Platelet Volume 10.6 fl (7.4-10.4); Monocytes Absolute Auto 0.7 K/mm3 (0.1-0.6); Monocytes Percent Auto 9.9 % (2.6-8.5); Neutrophils Absolute Auto 4.8 K/mm3 (1.3-6.7); Neutrophils Percent Auto 69.2 % (45.5-73.1); Platelet Count Result 173 k/mm3 (150-375); Red Blood Count 4.08 M/mm3 (4.2-5.4); Red Cell Distribution Width 11.3 % (11.5-14.5)
[2020-03-26 06:50] LABS: Anion Gap 11 mmol/L (8-16); Blood Urea Nitrogen 8 mg/dL (7-17); Calcium 8.9 mg/dL (8.4-10.2); Carbon Dioxide 24 mmol/L (22-30); Chloride 104 mmol/L (98-107); Estimated CRCL calculation 76 ml/min; Estimated Glomerular Filt Rate > 60; Glucose 89 mg/dL (65-105); Potassium 3.5 mmol/L (3.4-5.0); Sodium 139 mmol/L (137-145)
[2020-03-26 08:00] VITALS: PULSE 99; RESP 18; O2SAT 100
--- NOTE | 2020-03-26 09:23 | WPDUROPN2 ---
Progress Note: A&P Assessment and Plan (1) Hydronephrosis of right kidney: Code(s): N13.30 - Unspecified hydronephrosis Status: Acute Assessment and Plan: Creatinine and WBC are normal, ok to discharge per Urology. (2) Kidney calculus: Code(s): N20.0 - Calculus of kidney Status: Acute Assessment and Plan: Will plan to schedule RIght ESWL after her visit with Dr. Salcido next Sunday, stent will stay in until after the procedure. (3) Sepsis: Code(s): A41.9 - Sepsis, unspecified organism Status: Acute Assessment and Plan: Recommend 7 days of oral antibiotics, cutlure appropriate. Subjective Subjective Date/Time Seen: 03/26/20 09:23 POD #2 Cystoscopy, right ureteroscopy with stent placement, retrograde pyelogram. Patient doing very well, has minimal pain except minor dysuria with urination only. Urine culture is positive growing E-Coli and sensitive to Rocephin. WBC has returned to normal. Review of Systems Cardiovascular: Cardiovascular: Denies chest pain Respiratory: Respiratory: Reports no additional respiratory complaints Gastrointestinal: Gastrointestinal: Denies abdominal pain, Denies nausea and Denies vomiting Genitourinary: Genitourinary: Reports dysuria, Reports flank pain and Denies urinary urgency Exam Resp: Effort & Inspection: normal respiratory effort Cardio: Rate: regular rate GI: GI Palp: Yes Soft to palpation and No Tenderness to palpation present (GI) : General: Yes CVA tenderness on the right Extrem: General: no edema Objective Data Vital Signs Vital Signs: Vital Signs - 24 hr 03/25/20 11:24 03/25/20 22:15 03/26/20 04:50 Temperature 98.2 F 97.2 F L 97.6 F Pulse Rate 92 82 99 Respiratory Rate 18 16 18 Blood Pressure 118/68 105/52 L 117/63 Pulse Oximetry 100 100 100 Intake/Output Intake/Output: Intake & Output 03/23/20 03/24/20 03/25/20 03/26/20 23:59 23:59 23:59 23:59 Intake Total 900 3080 400 Output Total 3350 800 Balance 900 -270 -400 Meds/Results Medications: Active Medications Generic Name Dose Route Start Last Admin Trade Name Freq PRN Reason Stop Dose Admin Hydrocodone Bitart/Acetaminophen 1 tab 03/24/20 17:39 03/25/20 18:29 Hydrocodone/Acetaminophen (*Crx) 5-325 Mg Tablet PO 1 tab Q4H PRN Administration Pain Rated 1-6 Hyoscyamine 0.125 mg 03/24/20 17:39 Levsin Tablet SUBLINGUAL Q6H PRN Bladder Spasm Ceftriaxone Sodium/Dextrose 1 gm in 50 mls @ 100 mls/hr 03/25/20 13:00 03/25/20 13:11 Rocephin 1 Gm/D5w 50 Ml IVPB Infused Q24H KAYLA Infusion Morphine Sulfate 2 mg 03/24/20 17:39 Morphine Sulfate Inj (*Crx) IV PUSH Q2H PRN Pain Rated 7-10 Naloxone HCl 0.1 mg 03/24/20 17:39 Narcan IV PUSH Q2M PRN Opiate Reversal Non-Formulary Medication 0 each 03/24/20 17:39 Cariprazine [Vraylar] PO 04/23/20 17:40 .COMPLEX KAYLA Ondansetron HCl 4 mg 03/24/20 17:39 Zofran Inj IV PUSH Q12H PRN Nausea And Vomiting Radiology Results: ITS Impressions Abdomen/Pelvis CT 03/24/20 12:53 IMPRESSION: 8 x 11.5 mm right renal pelvic calculus with prominent right hydronephrosis Abdomen X-Ray 03/24/20 14:49 IMPRESSION: 8 x 12 mm calcified right ureteropelvic junction calculus Retrograde Pyelogram 03/25/20 08:41 IMPRESSION: Fluoroscopy used during XR retrograde pyelo w/stent RT. Labs Labs: Laboratory Results - last 24 hr 03/25/20 03/25/20 03/25/20 11:17 11:17 11:17 WBC 9.6 RBC 4.27 Hgb 13.3 Hct 39.9 MCV 93.4 MCH 31.1 MCHC 33.3 RDW 11.3 L Plt Count 179 MPV 10.5 H Immature Gran % (Auto) 0.5 Neut % (Auto) 76.0 H Lymph % (Auto) 15.2 L [place] % (Auto) 7.4 Eos % (Auto) 0.6 Baso % (Auto) 0.3 Lymph # (Auto) 1.46 [place] # (Auto) 0.7 H Eos # (Auto) 0.1 Baso # (Auto) 0.0 Abs Immat Gran (auto) 0.05 H Absolute
--- NOTE | 2020-03-26 09:48 | PM.DS ---
DS: Admitting Diagnosis Admitting Diagnosis Admitting Diagnosis: Right flank pain. DS: Discharge Diagnosis Discharge Diagnosis (1) Sepsis: Code(s): A41.9 - Sepsis, unspecified organism Status: Acute Assessment and Plan: Discharge Summary (Date of service 03/26/20): Mrs. Gracia is a 20 y.o. female with PMH significant for kidney stones who presented to the emergency department for the evaluation of right flank pain. Pain was colicky in nature with associated N/V. Initial workup in the emergency department included CT abd/pelvis with 8 x 11.5 mm right renal pelvic calculus at the right ureteropelvic junction with prominent right hydronephrosis. WBC was 14,3000 and urinalysis grossly abnormal. She met SIRS criteria with by fever, leukocytosis, and tachycardia. Source of infection was pyelonephritis in the setting of a kidney stone. She underwent right uterteral stent placement by Dr. Salcido with significant improvement in symptoms. Blood cultures were obtained after initiation of antibiotics and pending. Urine cultures were obtained and demonstrated pansensitive E. coli. Leukocytosis resovled and she had no further fever. She was cleared for discharge from a urology standpoint. She was advised to continue 7 days of cefdinir and follow-up with urology outpatient for ESWL. She requested to go home as she felt much better. She was discharged in stable condition on the morning of 03/26/20. (2) Hydronephrosis of right kidney: Code(s): N13.30 - Unspecified hydronephrosis Status: Acute Assessment and Plan: Secondary to large stone at the proximal ureter. She is s/p right ureteral stent placement 03/24/[address] Chavarria. Harmon was removed today and urinary symptoms resolved with good urine output. (3) Pyelonephritis: Code(s): N12 - Tubulo-interstitial nephritis, not specified as acute or chronic Status: Acute Assessment and Plan: UA was grossly abnormal with pyelonephritis in the setting of nephrolithiasis. She was treated with empiric IV ceftriaxone. Urine culture demonstrated pansensitive E. coli. Fever and leukocytosis resolved. She was discharged on PO cefdinir. (4) Kidney calculus: Code(s): N20.0 - Calculus of kidney Status: Acute Assessment and Plan: She is s/p right ureteral stent placement for right calculi by Dr. Salcido 03/24/20. She will follow-up with urology for outpatient lithotripsy. (5) Bipolar II disorder major depressive with catatonic features: Code(s): F31.81 - Bipolar II disorder; F06.1 - Catatonic disorder due to known physiological condition Status: Chronic Assessment and Plan: Vraylar was continued. DS: Summary Hospital Course Reason for hospitalization: Right flank pain Hospital Course: As above. Status at Discharge Functional status at discharge: independent ambulation Overall status at discharge: patient is back to baseline Time Spent with Patient Time attestation: Total time spent providing and/or coordinating discharge services: 30 minutes Exam Narrative: Exam Narrative: Vitals at presentation: Temp Pulse Resp BP Pulse Ox 98.4 F 94 22 H 133/91 H 100 03/24/20 11:33 03/24/20 11:33 03/24/20 11:33 03/24/20 11:33 03/24/20 11:33 Vitals at discharge: Temp Pulse Resp BP Pulse Ox 97.6 F 99 18 117/63 100 03/26/20 04:50 03/26/20 08:00 03/26/20 08:00 03/26/20 04:50 03/26/20 08:00 General: Very pleasant, healthy-appearing, well-developed 20 y.o. female lying supine in bed in no acute distress. HEENT: Normocephalic and atraumatic. Sclerae anicteric. Oral mucosa moist. Neck: Supple without lymphadenopathy or masses.
== END 2020-03-26 11:30 | disposition home or self-care (01) | DRG 854 ==
LOC: ANHED 14:25 → ANHSURGERY 14:40 → ANH3MED 18:53
PROVIDERS: General Practice; Urology; Admitting Provider Family Medicine; Emergency Provider Emergency Medicine; PCP Internal Medicine; Visit Provider Physician Assistant
PROC: 0T768DZ Dilation of Right Ureter with Intraluminal Device, Via Natural or Artificial Opening Endoscopic (ICD-10-PCS; CPT 52352; principal; 2020-03-24 16:00)
DX: A41.9 Sepsis, unspecified organism (principal); N13.6 Pyonephrosis; F31.81 Bipolar II disorder; B96.20 Unspecified Escherichia coli [E. coli] as the cause of diseases classified elsewhere; F17.290 Nicotine dependence, other tobacco product, uncomplicated
CPT/HCPCS: 36415; 74018; 74176; 74420; 80048; 81001; 81025; 83605; 85025; 87040; 87077; 87086; 87088; 87186; 96361; 96365; 96375; 99285; A9270; C1769; C1887; C2617; J0696; J1170; J2250; J2405; J2704; J7030; J7120; J7121; Q9966

== ENCOUNTER 2020-03-31 10:24 | Outpatient (CLI) | payer BC, SELFPAY ==
--- NOTE | ~2020-03-31 | XR_ITS ---
EXAMINATION: XR abdomen/kub 1V INDICATION: Right ureteral stone TECHNIQUE: Supine view of the abdomen is obtained. COMPARISON: 03/24/2020 FINDINGS: The previously described 1.5 cm right ureteral stone is now seen within the renal pelvis. A right internal ureteral stent has been placed which is in expected position. The bowel gas pattern i s normal. Phleboliths are present in the pelvis. No additional urolithiasis is identified. IMPRESSION: 1. 1.5 cm stone now residing in the right renal pelvis. Right internal ureteral stent in expected pos ition. Reviewed, dictated and finalized at location A. IMPRESSION: 1. 1.5 cm stone now residing in the right renal pelvis. Right internal ureteral stent in expected position.
== END 2020-03-31 10:25 | disposition home or self-care (01) ==
LOC: ANHIMG 10:34
PROVIDERS: PCP Internal Medicine; Visit Provider Urology
DX: N20.1 Calculus of ureter (principal)
CPT/HCPCS: 74018

== ENCOUNTER 2020-06-22 10:16 | Outpatient (CLI) | payer BC, SELFPAY ==
--- NOTE | ~2020-06-22 | XR_ITS ---
XR abdomen/kub 1V DATE: 06/22/2020 10:31 INDICATION: Right ureteral stone TECHNIQUE: AP projection, 2 views COMPARISON: 03/31/2020 KUB FINDINGS: Right internal urinary stent has been removed since 03/31/2020. Large previously reported 1 .5 cm right renal pelvic calcified stone is no longer evident. There is a moderately prominent of fecal material in the colon but no evidence of bowel obstruction. No visceromegaly is evident. Included skeletal structures are unremarkable. IMPRESSION: Right internal urinary stent has been removed since 03/31/2020. Large previously reported 1.5 cm right renal pelvic calcified stone is no longer evident Reviewed, dictated and finalized at Location [facility]. Reviewed, dictated and finalized at location B. [employer] IMPRESSION: Right internal urinary stent has been removed since 03/31/2020. Lar ge previously reported 1.5 cm right renal pelvic calcified stone is no longer e vident
== END 2020-06-22 10:17 | disposition home or self-care (01) ==
PROVIDERS: PCP Internal Medicine; Visit Provider Urology
DX: N20.1 Calculus of ureter (principal)
CPT/HCPCS: 74018

== ENCOUNTER 2020-10-31 13:31 | Emergency (ER) | payer BC, SELFPAY ==
--- NOTE | ~2020-10-31 | CT_ITS ---
EXAMINATION: CT abdomen pelvis w con EXAM DATE: 10/31/2020 15:31 INDICATION: Left lower quadrant abdominal pain. Black stool. TECHNIQUE: Spiral CT of the abdomen and pelvis was performed following intravenous injection of 100 m L Omnipaque 350. Axial, coronal and sagittal images of the abdomen and pelvis were reviewed. The do se-length product (DLP) for this examination was 193.25 mGy-cm. The exposure was tailored according to patient size (auto mA exposure control), and iterative reconstruction (ASIR) was used as additiona l dose reduction technique. Comparison is made to prior examination from 03/24/2020. FINDINGS: The liver, spleen, adrenal glands and pancreas are unremarkable. Gallbladder is unremarkab le. No biliary obstruction. Portal and splenic veins are patent. Kidneys enhance symmetrically. T here is no hydronephrosis. The uterus and ovaries are unremarkable, no adnexal mass. The bladder i s unremarkable. There is no retroperitoneal or pelvic lymphadenopathy. The appendix is normal. The stomach and small bowel are unremarkable. There is cecal fluid. There i s mildly thickened left hemicolonic wall, could be mild infectious colitis. No free intraperitoneal gas. The heart is normal in size. There are no pericardial or pleural effusions. The lung bases are unremarkable. The bones are normal. IMPRESSION: Possible mild left hemicolonic colitis. Reviewed, dictated and finalized at location A.
[2020-10-31 13:34] VITALS: BP 121/77; PULSE 89; RESP 20; TEMP 36.7; O2SAT 100
[2020-10-31 13:58] LABS: Basophils Percent Auto 0.4 % (0.2-1.2); Eosinophils Percent Auto 0.3 % (0-4.4); Hematocrit 42.4 % (37.0-47.0); Hemoglobin 14.9 g/dL (12.0-15.0); Immature Granulocyte Absolute 0.02 K/mm3 (0.00-0.031); Immature Granulocyte Percent A 0.3 % (0-0.5); Lymphocytes Absolute Auto 1.94 K/mm3 (0.9-3.2); Lymphocytes Percent Auto 25.9 % (18.3-44.2); Mean Corpuscular HGB Conc 35.1 g/dl (32-36); Mean Corpuscular Volume 91.2 fl (80-100); Monocytes Absolute Auto 0.5 K/mm3 (0.1-0.6); Monocytes Percent Auto 7.1 % (2.6-8.5); Platelet Count Result 235 k/mm3 (150-375); Red Blood Count 4.65 M/mm3 (4.2-5.4); Red Cell Distribution Width 11.2 % (11.5-14.5); White Blood Count 7.5 K/mm3 (4.5-10.0)
[2020-10-31 14:09] LABS: Add Urine Microscopic? YES; Appearance Urine Clear (Clear); Bacteria Urine 2+ /hpf; Bilirubin Urine Negative (Negative); Blood Urine 1+ (Negative); Color Urine Colorless (Yellow); Glucose Urine UA Negative (Negative); Ketones Urine Negative (Negative); Leukocyte Esterase Ur Negative LEU/UL (Negative); Nitrate Urine Negative (Negative); Protein Urine Negative (Negative); RBC Urine 0-2 /hpf (0-2); Specific Grav Ur 1.003 (1.001-1.035); Squamous Epithelial Cell Urine Occasional /hpf (Few); Urobilinogen Urine Negative mg/dL (<2.0); WBC Urine 0-3 /hpf
[2020-10-31 14:10] LABS: Alanine Aminotransferase 14 U/L (4-35); Albumin Level 4.9 g/dL (3.5-5.1); Alkaline Phosphatase 61 U/L (38-126); Anion Gap 11 mmol/L (8-16); Aspartate Amino Transferase 30 U/L (14-36); Bilirubin,Total 1.7 mg/dL (0.2-1.3); Blood Urea Nitrogen 9 mg/dL (7-17); Calcium 9.9 mg/dL (8.4-10.2); Carbon Dioxide 22 mmol/L (22-30); Chloride 108 mmol/L (98-107); Estimated CRCL calculation 68 ml/min; Estimated Glomerular Filt Rate > 60; Glucose 86 mg/dL (65-105); Lipase 63 U/L (23-300); Potassium 3.7 mmol/L (3.4-5.0); Sodium 141 mmol/L (137-145)
--- NOTE | 2020-10-31 14:58 | ED.GENADULT ---
HPI - General Adult General Chief complaint: Nausea/Vomiting/Diarrhea Stated complaint: n/v/d Time Seen by Provider: 10/31/20 14:54 Source: RN notes reviewed History of Present Illness HPI narrative: Patient presents to emergency department from home for abdominal pain patient states symptoms began this morning with abdominal cramping associated with nausea as well as diarrhea that is black in color she denies any fevers or chills chest pain shortness of breath or vomiting states that the abdominal pain is located in the upper abdomen denies any history of GI bleeding she denies taking medication at home Related Data Home Medications Medication Instructions Recorded Confirmed cariprazine [Vraylar] 3 mg PO DAILY 10/31/20 10/31/20 Allergies Allergy/AdvReac Type Severity Reaction Status Date / Time amphetamine AdvReac Intermediate Fatigued Verified 10/31/20 15:06 dextroamphetamine AdvReac Intermediate fatigued Verified 10/31/20 15:06 Review of Systems Review of Systems: Narrative: Gen.: Denies fevers or chills ENT: Denies congestion Respiratory: Denies shortness of breath or cough CV: Denies chest pain or palpitations GI: See HPI denies burning, urgency, frequency or hematuria Musculoskeletal: Denies back pain or muscle pain Neuro: Denies numbness, tingling, weakness or focal weakness Skin: Denies rash Except as documented, all other systems reviewed and negative [facility] Past Medical History Medical History Attention deficit disorder (ADD) without hyperactivity Bipolar II disorder major depressive with catatonic features Kidney stones Surgical History Surgical History (Updated 03/24/20 @ 21:26 by Carina Trujillo PA-C) History of adenoidectomy History of cystoscopy (~03/24/20) With right ureteral stent placement for kidney stone. Family History Family History (Updated 03/24/20 @ 21:26 by Carina Trujillo PA-C) Other Depression Family history of malignant neoplasm of breast Family history of thyroid disease Hypertension Social History Social History Social History: Surrogate decision maker: Joanna Gracia, mother. Code status: Full code. Smoking status: Current every day smoker Tobacco type: e-cigarettes/vaping Alcohol intake: never Substance use type: marijuana Last use: 03/24/2020 Additional living arrangements comments: Lives with her sister and a friend in [place]. Additional occupation/education comments: Works at [employer]. Gender identity (if verbalized by the patient): Female Spiritual care concerns: No Exam Narrative: Exam Narrative: APPEARANCE: No acute distress, nontoxic, resting in bed HEENT: Normocephalic, atraumatic, OMM RESPIRATORY: No respiratory distress, clear to auscultation bilaterally with no rhonchi wheezing or rales CARDIOVASCULAR: RRR s murmur ABDOMINAL: Soft nondistended tender palpation left upper quadrant epigastric region no tenderness in right upper quadrant, right lower quadrant left lower quadrant no rebound or guarding Rectal: Small hemorrhoid 6 o'clock position with no active bleeding small amount of soft brown stool that is Hemoccult positive MUSCULOSKELETAl: Moves all extremities. No clubbing, cyanosis or edema. NEURO: Awake and alert. Following commands, speech normal, no focal deficits SKIN:: Warm, dry. Normal Color PSYCHIATRIC: Normal affect/mood Course Course Emergency Course: Called and discussed with Dr. Pichardo presentation and work-up agrees with plan for discharge at this time with patient be started on Cipro and Flagyl for 5 days and follow-up as an outpatient Patient states that they are feeling much better at this time. States abdominal pain has resolved. Repeat abdominal exam shows the patient's abdomen to be soft and nontender. Discussed with patient results of workup and diagnosis. Disc
[2020-10-31] MEDS: SODIUM CHLORIDE 0.9% IV 1,000 ML 999 ML IV CONT (15:09)
[2020-10-31] MEDS: ONDANSETRON INJ 4 MG/2 ML VIAL IV PUSH (15:09)
[2020-10-31 15:30] VITALS: BP 119/76; PULSE 86; RESP 18; O2SAT 99
[2020-10-31] MEDS: PANTOPRAZOLE SODIUM IV 40 MG VIAL IV PUSH (15:38)
[2020-10-31] MEDS: metroNIDAZOLE 250 MG TABLET 500 MG PO (16:27)
== END 2020-10-31 16:00 | disposition home or self-care (01) ==
LOC: ANHED 16:00
PROVIDERS: Emergency Provider Emergency Medicine; PCP Internal Medicine
DX: K52.9 Noninfective gastroenteritis and colitis, unspecified (principal); F98.8 Other specified behavioral and emotional disorders with onset usually occurring in childhood and adolescence; F31.81 Bipolar II disorder; Z87.442 Personal history of urinary calculi; F17.290 Nicotine dependence, other tobacco product, uncomplicated
CPT/HCPCS: 36415; 74177; 80053; 81001; 81025; 83690; 85025; 96365; 96375; 99284; A9270; C9113; J0131; J2405; J7030; Q9967

== ENCOUNTER 2020-12-31 00:32 | Day surgery (SDC) | payer BC, SELFPAY ==
[2020-12-17 13:59] VITALS: BMI 21.4
[2020-12-31 06:28] VITALS: BP 111/66; PULSE 86; RESP 12; TEMP 36; O2SAT 100; BMI 21.4
[2020-12-31] MEDS: LACTATED RINGERS 1,000 ML 150 ML IV CONT (06:35)
--- NOTE | 2020-12-31 06:47 | WPDANESEPPF ---
Anes - Initial Pre Proc Eval Procedure: Operation Date: 12/31/20 07:30 Proposed Procedures p Colonoscopy - Héctor Iqbal MD Date/Time: 12/31/20 06:47 Surgeon: Héctor Iqbal MD Pre Op Diagnosis: colitis Patient Data Age: 20 Gender: F Height: 1.6 m Weight: 55 kg Last Vital Signs Temp 36.0 C L 12/31/20 06:28 Pulse 86 12/31/20 06:28 Resp 12 12/31/20 06:28 BP 111/66 12/31/20 06:28 Pulse Ox 100 12/31/20 06:28 Allergies Allergy/AdvReac Type Severity Reaction Status Date / Time morphine Allergy Intermediate Redness of Verified 12/31/20 06:24 Skin amphetamine AdvReac Intermediate Fatigued Verified 12/31/20 06:24 dextroamphetamine AdvReac Intermediate fatigued Verified 12/31/20 06:24 Home Medications Medication Instructions Recorded Confirmed Type No Home Medications 12/17/20 12/31/20 History Patient hx anesthesia problems: none Family hx anesthesia problems: none PMFSH Past Medical History Medical History Attention deficit disorder (ADD) without hyperactivity Bipolar II disorder major depressive with catatonic features Kidney stones Tobacco abuse Surgical History Surgical History History of adenoidectomy History of cystoscopy (~03/24/20) With right ureteral stent placement for kidney stone. Family History Family History Other Depression Family history of malignant neoplasm of breast Family history of thyroid disease Hypertension Social History Social History Social History: Surrogate decision maker: Joanna Gracia, mother. Code status: Full code. Smoking status: Current every day smoker Tobacco type: e-cigarettes/vaping Alcohol intake: current Substance use: current Substance use type: marijuana Other substance usage details: ONCE A DAY Last use: 03/24/2020 Living arrangements: with family Additional living arrangements comments: Lives with her sister and a friend in [place]. Additional occupation/education comments: Works at [employer]. Gender identity (if verbalized by the patient): Female Spiritual care concerns: No Anes - Eval Final PreProcedure Day of Procedure 12/31/20 06:47 Patient weight: normal Heart: regular rate and rhythm Lungs: clear to auscultation Airway: Mallampati scale class II Neurological: alert and oriented Last oral intake: >/= 8 hours ASA classification: II Emergent: no Anesthetic plan: proceed Anesthesia type and monitoring: general GIVS and standard monitoring Informed Consent: The patient's anesthetic plan and its attendant risks and benefits were discussed with the patient/family/POA. Questions were solicited and answers provided to the satisfaction of the patient/family/POA.
--- NOTE | 2020-12-31 07:37 | SUR.OPER ---
0730 SPOKE WITH PATIENT AND FAMILY...INSTRUCTED ON DELAY.
--- NOTE | 2020-12-31 07:51 | PM.HPGS ---
History of Present Illness History of Present Illness Consent: Risks, benefits, and alternatives have been discussed and questions answered. Patient agrees to proceed with procedure. Chief complaint: colitis Narrative: Laura Gracia is a 20 year old female with colitis about 2 months ago, now asymptomatic but never had colonoscopy Review of Systems Constitutional: Constitutional: Denies headache(s) and Denies weakness Eyes: Eyes: Denies blurry vision ENT: Reports Normal hearing present, Denies headache(s) and Denies neck pain Cardiovascular: Cardiovascular: Denies chest pain and Denies dyspnea Respiratory: Respiratory: Denies dyspnea Gastrointestinal: Gastrointestinal: Reports no additional gastrointestinal complaints Genitourinary: Genitourinary: Denies dysuria Musculoskeletal: Musculoskeletal: Denies neck pain Integumentary/Breasts: Skin/Breast: Denies dry skin Neurologic: Reports Normal hearing present, Denies headache(s) and Denies weakness Psychiatric: Psychiatric: Denies anxiety Endocrine: Endocrine: Denies change in body appearance Hematologic/Lymphatic: Hematologic/Lymphatic: Denies easy bleeding Allergic/Immunologic: Allergic/Immunologic: Denies urticaria PMFSH Past Medical History Medical History Attention deficit disorder (ADD) without hyperactivity Bipolar II disorder major depressive with catatonic features Kidney stones Tobacco abuse Surgical History Surgical History History of adenoidectomy History of cystoscopy (~03/24/20) With right ureteral stent placement for kidney stone. Family History Family History Other Depression Family history of malignant neoplasm of breast Family history of thyroid disease Hypertension Social History Social History Social History: Surrogate decision maker: Joanna Gracia, mother. Code status: Full code. Smoking status: Current every day smoker Tobacco type: e-cigarettes/vaping Alcohol intake: current Substance use: current Substance use type: marijuana Other substance usage details: ONCE A DAY Last use: 03/24/2020 Living arrangements: with family Additional living arrangements comments: Lives with her sister and a friend in [place]. Additional occupation/education comments: Works at [employer]. Gender identity (if verbalized by the patient): Female Spiritual care concerns: No Meds Home Medications and Allergies Home Medications Medication Instructions Recorded Confirmed Type No Home Medications 12/17/20 12/31/20 History Allergies Allergy/AdvReac Type Severity Reaction Status Date / Time morphine Allergy Intermediate Redness of Verified 12/31/20 06:24 Skin amphetamine AdvReac Intermediate Fatigued Verified 12/31/20 06:24 dextroamphetamine AdvReac Intermediate fatigued Verified 12/31/20 06:24 Vital Signs Vital Signs - 24 hr 12/31/20 06:28 Temperature 96.8 F L Pulse Rate 86 Respiratory Rate 12 Blood Pressure 111/66 Pulse Oximetry 100 Exam Const: General: comfortable and no acute distress HENMT: General nose exam: Normal nares present Eyes: General: appearance normal, both eyes and all related structures Neck: Neck: no JVD Resp: Auscultation: clear to auscultation bilaterally Cardio: Rate: regular rate Rhythm: regular rhythm GI: Inspection: non-distended GI Palp: Yes Soft to palpation Skin: General skin exam: normal color Neuro: General: gait normal Speech: normal speech Extrem: General: normal to inspection Psych: Mental Status: mental status grossly normal Assessment and Plan Assessment and plan (1) Colitis: Code(s): K52.9 - Noninfective gastroenteritis and colitis, unspecified Sta
[2020-12-31 08:10] VITALS: BP 99/60; PULSE 57; RESP 21; O2SAT 100
[2020-12-31 08:20] VITALS: BP 108/56; PULSE 58; RESP 22; O2SAT 100
[2020-12-31 08:30] VITALS: BP 104/56; PULSE 51; RESP 22; O2SAT 100
== END 2020-12-31 08:39 | disposition home or self-care (01) ==
PROVIDERS: PCP Internal Medicine; Visit Provider Internal Medicine Gastroenterology
PROC: 0DJD8ZZ Inspection of Lower Intestinal Tract, Via Natural or Artificial Opening Endoscopic (ICD-10-PCS; CPT 45378; principal; 2020-12-31 07:30)
DX: K52.9 Noninfective gastroenteritis and colitis, unspecified (principal); K64.8 Other hemorrhoids; F98.8 Other specified behavioral and emotional disorders with onset usually occurring in childhood and adolescence; F31.81 Bipolar II disorder; F17.290 Nicotine dependence, other tobacco product, uncomplicated; Z87.442 Personal history of urinary calculi
CPT/HCPCS: 45378; J2704; J7120

== ENCOUNTER 2021-05-17 18:11 | Emergency (ER) | payer BC, SELFPAY ==
[2021-05-17 18:15] VITALS: BP 130/90; PULSE 79; RESP 16; TEMP 36.5; O2SAT 100
--- NOTE | 2021-05-17 21:17 | PC.NURSE ---
Pt to desk with mother stating she wants to leave. Pt is A&Ox4. Pt told to return to ED if she is unable to find relief from her symptoms or she has any further complaints.
== END 2021-05-18 02:03 | disposition left against medical advice (07) ==
PROVIDERS: PCP Internal Medicine
DX: R10.9 Unspecified abdominal pain (principal)
CPT/HCPCS: 99199

== ENCOUNTER 2021-10-06 10:51 | Emergency (ER) | payer BC, SELFPAY ==
--- NOTE | ~2021-10-06 | XR_ITS ---
EXAMINATION: XR heel RT min 2V DATE: 10/06/2021 11:21 INDICATION: Right heel pain. TECHNIQUE: 2 views of right calcaneus were obtained. COMPARISON: Right ankle radiographs 07/24/2011 FINDINGS: Bone alignment is normal. No fracture. There is a benign bone island in calcaneus. Joint sp aces are normal. IMPRESSION: 1. Normal right calcaneus. Reviewed, dictated and finalized at location [facility]. IMPRESSION: 1. Normal right calcaneus.
--- NOTE | 2021-10-06 10:57 | ED.LOWEXIN ---
HPI - Extremity Injury (Lower) General Chief Complaint: Extremity Injury, Lower Stated Complaint: Right heel injury Time Seen by Provider: 10/06/21 10:58 Source: patient and RN notes reviewed History of Present Illness HPI Narrative: Patient is a 21-year-old female who presents the urgent care with complaints of right heel pain. Patient states its radiating up the right ankle. States that she wore high heels to a wedding over the weekend with a heel strap. Patient denies of any injury or fall. Patient states that she has been intermittently taking ibuprofen for the pain. Patient shows no difficulty ambulating. No other acute complaints. No acute distress noted. Patient aware of the plan of care. Some parts of this dictation were generated by voice recognition software and may contain typographical and/or grammatical inaccuracies. Related Data Home Medications Medication Instructions Recorded Confirmed No Home Medications 10/06/21 10/06/21 Allergies Allergy/AdvReac Type Severity Reaction Status Date / Time morphine Allergy Intermediate Redness of Verified 10/06/21 11:09 Skin amphetamine AdvReac Intermediate Fatigued Verified 10/06/21 11:09 dextroamphetamine AdvReac Intermediate fatigued Verified 10/06/21 11:09 Review of Systems Review of Systems: CONSTITUTIONAL: Denies fever, chills, or sweats. EYES: Denies visual changes, redness, or discharge. ENT: Denies rhinorrhea, congestion, sore throat, or otalgia. CARDIOVASCULAR: Denies chest pain, palpitations, or edema. RESPIRATORY: Denies cough or dyspnea. GASTROINTESTINAL: Denies abdominal pain, nausea, vomiting, or diarrhea. GENITOURINARY: Denies dysuria or hematuria. SKIN: Denies rash or itching. MUSCULOSKELETAL: Reports of right heel/ankle pain NEUROLOGIC: Denies headache, numbness, or weakness. All other systems reviewed are negative, except as documented in HPI. [facility] Past Medical History Medical History Attention deficit disorder (ADD) without hyperactivity Bipolar II disorder major depressive with catatonic features Kidney stones Tobacco abuse Surgical History Surgical History History of adenoidectomy History of cystoscopy (~03/24/20) With right ureteral stent placement for kidney stone. Hx of colonoscopy Family History Family History Other Depression Family history of malignant neoplasm of breast Family history of thyroid disease Hypertension Social History Social History (Updated 04/29/21 @ 14:54 by Caryn Monroy MA) Social History: Surrogate decision maker: Joanna Gracia, mother. Code status: Full code. Smoking packs per day: 1 Smoking cigarettes per day: 20.0 Years smoked: 4 Smoking pack-years: 4.00 Smoking status: Current every day smoker Tobacco type: e-cigarettes/vaping Second hand tobacco smoke exposure: No Alcohol intake: current Alcohol use details: social Substance use: current Substance use type: marijuana Other substance usage details: ONCE A DAY Last use: 03/24/2020 Additional living arrangements comments: Lives with her sister and a friend in [place]. Additional occupation/education comments: Works at [employer] Gender identity (if verbalized by the patient): Female Sexual Orientation (if Verbalized by the Patient): Straight or Heterosexual Spiritual care concerns: No Comments At the time of my signature, I reviewed and agree with the nursing past medical, surgical, social, and family history. There is no relevant family history pertinent to the patient complaint. Exam Narrative: GENERAL: This is a well-nourished, well-developed patient, in no apparent distress. HEAD: normocephalic, atraumatic. EYES: PERRL. Sclera clear/white. Vision is grossly intact. EARS: Ex
[2021-10-06 11:08] VITALS: BP 131/78; PULSE 86; RESP 12; TEMP 36.7; O2SAT 100
== END 2021-10-06 11:43 | disposition home or self-care (01) ==
PROVIDERS: Emergency Provider Nurse Practitioner Family; PCP Internal Medicine
DX: S93.401A Sprain of unspecified ligament of right ankle, initial encounter (principal); S96.911A Strain of unspecified muscle and tendon at ankle and foot level, right foot, initial encounter; X58.XXXA Exposure to other specified factors, initial encounter
CPT/HCPCS: 73650; 99213; G0463

== ENCOUNTER 2021-10-24 12:34 | Emergency (ER) | payer BC, SELFPAY ==
[2021-10-24 12:48] VITALS: BP 137/92; PULSE 107; RESP 16; TEMP 36.7; O2SAT 99
--- NOTE | 2021-10-24 13:06 | ED.URI ---
HPI - URI/Sore Throat General Chief Complaint: Upper Respiratory Infection Stated Complaint: fever,sore throat, cough,congestion Time Seen by Provider: 10/24/21 13:02 Source: patient and RN notes reviewed Mode of arrival: ambulatory Limitations: no limitations History of Present Illness HPI Narrative: 21-year-old female presents with concern for fever, sore throat, cough, nasal congestion, body aches, chills, fatigue. Reports exposure to influenza. Reports she is been taking Tylenol and flu. Nausea, vomiting, diarrhea. MD elicited complaint: cough and nasal congestion Related Data Allergies Allergy/AdvReac Type Severity Reaction Status Date / Time morphine Allergy Intermediate Redness of Verified 10/24/21 12:46 Skin amphetamine AdvReac Intermediate Fatigued Verified 10/24/21 12:46 dextroamphetamine AdvReac Intermediate fatigued Verified 10/24/21 12:46 Review of Systems Review of Systems: CONSTITUTIONAL: Reports malaise, chills, sweats, fever. EYES: Denies visual changes, redness, or discharge. ENT: Reports rhinorrhea, congestion, sore throat. Denies sinus pain and sore throat. CARDIOVASCULAR: Denies chest pain, palpitations, or edema. RESPIRATORY: Reports cough. Denies dyspnea. GASTROINTESTINAL: Denies abdominal pain, nausea, vomiting, diarrhea SKIN: Denies rash or itching. MUSCULOSKELETAL: Reports myalgia. NEUROLOGIC: Reports headache. All systems reviewed & are unremarkable except as noted in HPI and below PMFSH Past Medical History Medical History Attention deficit disorder (ADD) without hyperactivity Bipolar II disorder major depressive with catatonic features Kidney stones Tobacco abuse Surgical History Surgical History History of adenoidectomy History of cystoscopy (~03/24/20) With right ureteral stent placement for kidney stone. Hx of colonoscopy Family History Family History Other Depression Family history of malignant neoplasm of breast Family history of thyroid disease Hypertension Social History Social History (Updated 04/29/21 @ 14:54 by Caryn Monroy MA) Social History: Surrogate decision maker: Joanna Gracia, mother. Code status: Full code. Smoking packs per day: 1 Smoking cigarettes per day: 20.0 Years smoked: 4 Smoking pack-years: 4.00 Smoking status: Current every day smoker Tobacco type: e-cigarettes/vaping Second hand tobacco smoke exposure: No Alcohol intake: current Alcohol use details: social Substance use: current Substance use type: marijuana Other substance usage details: ONCE A DAY Last use: 03/24/2020 Additional living arrangements comments: Lives with her sister and a friend in [place]. Additional occupation/education comments: Works at [employer] Gender identity (if verbalized by the patient): Female Sexual Orientation (if Verbalized by the Patient): Straight or Heterosexual Spiritual care concerns: No Comments At time of signature, agree with nursing past medical, surgical, social and family history. There is no relevant family history pertinent to the presenting complaint Exam Narrative: GENERAL: Nontoxic appearing and in no acute distress. HEAD: Normocephalic EYES: PERRLA, conjunctivae clear ENT: Nares clear, clear discharge. Mucous membranes moist. TM pearly davey with sharp light reflex bilaterally; no tragal tenderness. Oropharynx not erythematous without lesions. Tonsils not enlarged and without exudate, no drooling, no hoarseness, no trismus, uvula midline. NECK: Supple. No lymphadenopathy CHEST: Clear to auscultation, breath sounds equal. No wheezing, rhonchi, rales, or stridor. No respiratory distress, speaks in full sentences. HEART: Regular rate and rhythm. No murmur heard. SKIN: Warm, dry, no rash. [facility]
== END 2021-10-24 13:18 | disposition home or self-care (01) ==
PROVIDERS: Emergency Provider Nurse Practitioner
DX: J10.1 Influenza due to other identified influenza virus with other respiratory manifestations (principal); F17.210 Nicotine dependence, cigarettes, uncomplicated
CPT/HCPCS: 87804; 99213; G0463

== ENCOUNTER 2024-05-08 07:52 | Outpatient (CLI) | payer BC, SELFPAY ==
--- NOTE | ~2024-05-08 | XR_ITS ---
Clinical Indication: Cough PA and lateral views of the chest: Comparison: 11/29/2012 Findings: The lungs are clear, without evidence of focal consolidation or pleural effusion. Cardiome diastinal silhouette is within normal limits. Bones and soft tissues are unremarkable. Impression: Normal chest. Reviewed, dictated and finalized at [facility]. MATE CLERK Impression: Normal chest.
== END 2024-05-08 07:53 | disposition home or self-care (01) ==
PROVIDERS: PCP Nurse Practitioner Family; Visit Provider Nurse Practitioner Family
DX: R05.9 Cough, unspecified (principal)
CPT/HCPCS: 71046